=== PATIENT | male | born 1970 ===

== ENCOUNTER 2023-03-10 12:49 | Outpatient (CLI) | payer BC, SELFPAY ==
--- NOTE | ~2023-03-10 | MR_ITS ---
MRI of the left hip Clinical history: Pain Technique: Coronal T1-weighted, T2-weighted, and proton-density fat-sat images, and axial T1-weighted and proton-density fat-sat images were acquired through the pelvis. Coronal T2-weighted images and c oronal, axial, and sagittal proton-density fat-sat images were acquired through the left hip. Findings: There is no fracture or avascular necrosis of the proximal femora. Visualized pelvic bones and proximal femora demonstrate normal marrow signals. No significant joint effusion identified. Jayne cular cartilage in the left hip is well preserved. No definite acetabular labral tear identified. Visualized musculature about the pelvis and left hip is unremarkable. Tendons are intact. No evidence for bursitis. No soft tissue mass or fluid collection identified. IMPRESSION: No significant abnormality identified. Reviewed, dictated and finalized at [facility]. [facility]
== END 2023-03-10 12:50 ==
PROVIDERS: PCP Orthopaedic Surgery; Visit Provider Orthopaedic Surgery
DX: M25.552 Pain in left hip (principal)
CPT/HCPCS: 73721